=== PATIENT | male | born 1945 | race Caucasian/White ===

== ENCOUNTER 2022-02-23 14:49 | Emergency (ER) | payer MEDICARE, OTHER, SELFPAY ==
[2022-02-23] VITALS (23 sets, daily range): BP systolic 109–150; BP diastolic 62–98; PULSE 74–113; RESP 12–22; TEMP 36.5–37.2; O2SAT 95–98
--- NOTE | ~2022-02-23 | CT_ITS ---
EXAMINATION: CT brain wo con DATE: 02/23/2022 17:18 INDICATION: Altered mental state. Fatigue. Covid-positive. TECHNIQUE: Computed tomography (CT) of the head was performed without intravenous contrast. The mA wa s adjusted according to patient size. Iterative reconstruction technique was employed. Exam dose: 60 5.33 mGy-cm total exam DLP. COMPARISON: None FINDINGS: No intracranial mass lesion or hemorrhage or cerebrovascular accident is detected. Bilateral carotid siphon internal carotid artery calcifications. Bilateral basal ganglia calcifications. There is nonspecific diminished attenuation of the cerebral white matter, likely due to chronic nonsp ecific small vessel ischemic disease. There is moderate central and cortical cerebral atrophy. No subdural or epidural hematoma. No skull fracture or bone destruction of the cranial vault. Included paranasal sinuses and mastoid air cells are normally developed and aerated. IMPRESSION: Cerebral atherosclerosis and chronic small vessel ischemic changes No acute intracranial finding Reviewed, dictated and finalized at [facility]. Reviewed, dictated and finalized at [facility].
--- NOTE | ~2022-02-23 | XR_ITS ---
EXAMINATION: XR chest 1V INDICATION: Shortness of breath and cough TECHNIQUE: PA view of the chest is obtained. COMPARISON: None available FINDINGS: There are mild diffuse interstitial and airspace opacities. No pleural effusion or pneumoth orax. The cardiomediastinal silhouette is normal. A calcified nodule of the right lung base is consis tent with old granulomatous disease. IMPRESSION: 1. Mild diffuse interstitial pattern which could reflect pneumonia and/or pulmonary edema. Reviewed, dictated and finalized at [facility]. IMPRESSION: 1. Mild diffuse interstitial pattern which could reflect pneumonia and/or pulmo nary edema.
--- NOTE | 2022-02-23 16:37 | ED.URI ---
HPI - URI/Sore Throat General Chief Complaint: Upper Respiratory Infection Stated Complaint: covid +, came from urgent care Time Seen by Provider: 02/23/22 16:37 History of Present Illness HPI Narrative: The patient is a 76-year-old male with a history of atrial fibrillation on anticoagulation presenting to the emergency department for evaluation of cough in the setting of COVID diagnosis. Patient reports he has had dry cough for the past 48 hours as well as his . He presented to a local urgent care today in order to be evaluated and was found to be positive for COVID. Unfortunately, we do not share electronic medical records the facility that he initially presented to. The patient was noted to have an episode of lightheadedness and dizziness and this was sent here for evaluation. Patient has no confusion at the time of assessment. He denies headache, chest pain, shortness of breath. He reports dry cough over the past 48 hours. He reports low-grade fever this morning of 100 Fahrenheit. He denies vision changes, focal weakness or numbness. He has been ambulatory. Per the urgent care report, patient had oxygen saturation of 92%. Patient has been vaccinated x2 with 2 boosters for COVID with last booster 2 weeks previously. Patient without dysuria, hematuria. The patient has been compliant with his anticoagulation. Related Data Allergies Allergy/AdvReac Type Severity Reaction Status Date / Time No Known Allergies Allergy Verified 02/23/22 17:29 Review of Systems Review of Systems: CONSTITUTIONAL: Reports fever without chills EYES: Denies visual changes, redness, or discharge. ENT: Reports rhinorrhea, congestion, denies sore throat CARDIOVASCULAR: Denies chest pain, palpitations, or edema. RESPIRATORY: Reports cough without shortness of breath GASTROINTESTINAL: Denies abdominal pain, nausea, vomiting, or diarrhea. GENITOURINARY: Denies dysuria or hematuria. SKIN: Denies rash or itching. MUSCULOSKELETAL: Denies back pain, joint pain, or myalgia. NEUROLOGIC: Denies headache, numbness, or weakness. Exam Narrative: GENERAL: Awake, alert, conversant HEAD: Normocephalic, atraumatic. EYES: PERRLA and EOMI. ENT: Nares clear, no rhinorrhea or epistaxis. Mucous membranes moist. NECK: Supple. CHEST: No respiratory distress, breathing even and non labored HEART: Tachycardic rate, irregular rhythm ABDOMEN:Non distended, non tender EXTREMITIES: Normal range of motion. No edema. SKIN: Warm, dry, no rash. NEURO:No focal deficits. Alert and oriented x3 Course Vital Signs Vital signs: Vital Signs Temperature 36.5 C 02/23/22 15:22 Pulse Rate 113 H 02/23/22 15:22 Respiratory Rate 18 02/23/22 15:22 Blood Pressure 109/62 02/23/22 15:22 Pulse Oximetry 95 02/23/22 15:22 Oxygen Delivery Room Air 02/23/22 15:22 Temperature 36.5 C 02/23/22 17:26 Pulse Rate 78 02/23/22 18:19 Respiratory Rate 17 02/23/22 18:19 Blood Pressure 140/90 02/23/22 18:19 Pulse Oximetry 98 02/23/22 18:19 Oxygen Delivery Room Air 02/23/22 17:29 MDM - URI/Sore Throat MDM Narrative Medical decision making narrative: Patient presented here from urgent care for evaluation of COVID type symptoms. There was a question of that the patient had altered mental status at the urgent care the patient is alert and oriented to person, place, to time, states that he felt slightly lightheaded at the urgent care but denied any true altered mentation. Patient has a normal neurological exam and is ambulatory with a narrow base, steady gait, no ataxia. Initially the patient was mildly tachycardic but this down trended and became normal. Patient without leukocytosis, anemia, electrolyte derangement, acute kidney injury. Chest x-ray with evidence of potential interstitial pneumonia versus edema but patient does not have findings consistent with fluid overloaded state or significant pulmonary edema. No crackles on exam. No chest pain, no low
--- NOTE | 2022-02-23 17:00 | ECG_ITS ---
Measurements Intervals [place] Rate: 82 P: NM: 0 QRS: 39 QRSD: 88 T: 124 QT: 374 QTc: 437 Interpretive Statements ATRIAL FIBRILLATION NONSPECIFIC T-WAVE ABNORMALITY ABNORMAL ECG NO PREVIOUS ECG AVAILABLE FOR COMPARISON Electronically Signed On 02-24-2022 16:37:43 CDT by Elliott Jacob M.D.
[2022-02-23] MEDS: ACETAMINOPHEN 500 MG TABLET 1000 MG PO (17:39)
[2022-02-23] MEDS: SODIUM CHLORIDE 0.9% IV 1,000 ML 999 ML IV CONT (17:39)
[2022-02-23 17:45] LABS: Basophils Percent Auto 0.2 % (0.2-1.2); Eosinophils Percent Auto 0.1 % (0-4.4); Hematocrit 50.4 % (42.0-52.0); Hemoglobin 16.8 g/dL (14.0-18.0); Immature Granulocyte Absolute 0.02 K/mm3 (0.00-0.031); Immature Granulocyte Percent A 0.2 % (0-0.5); Lymphocytes Absolute Auto 0.71 K/mm3 (0.9-3.2); Lymphocytes Percent Auto 8.2 % (18.3-44.2); Mean Corpuscular HGB Conc 33.3 g/dl (32-36); Mean Corpuscular Hemoglobin 30.3 pg (26-34); Mean Corpuscular Volume 90.8 fl (80-100); Mean Platelet Volume 10.7 fl (7.4-10.4); Monocytes Absolute Auto 0.7 K/mm3 (0.1-0.6); Monocytes Percent Auto 7.7 % (2.6-8.5); Neutrophils Absolute Auto 7.2 K/mm3 (1.3-6.7); Neutrophils Percent Auto 83.6 % (45.5-73.1); Platelet Count Result 151 k/mm3 (150-375); Red Blood Count 5.55 M/mm3 (4.6-6.20); Red Cell Distribution Width 13.2 % (11.5-14.5); White Blood Count 8.6 K/mm3 (4.5-10.0)
[2022-02-23 17:57] LABS: Alanine Aminotransferase 30 U/L (6-50); Albumin Level 4.6 g/dL (3.5-5.1); Alkaline Phosphatase 60 U/L (38-126); Anion Gap 9 mmol/L (8-16); Aspartate Amino Transferase 27 U/L (17-59); Bilirubin,Total 1.1 mg/dL (0.2-1.3); Blood Urea Nitrogen 17 mg/dL (9-20); Calcium 9.1 mg/dL (8.4-10.2); Carbon Dioxide 25 mmol/L (22-30); Chloride 105 mmol/L (98-107); Estimated CRCL calculation 51 ml/min; Estimated Glomerular Filt Rate 59; Glucose 168 mg/dL (65-110); Potassium 4.1 mmol/L (3.4-5.0); Sodium 139 mmol/L (137-145)
[2022-02-23 18:17] LABS: Troponin I < 0.012 ng/mL (0.000-0.034)
--- NOTE | 2022-02-23 18:21 | PC.NURSE ---
Completed walking SpO2 testing. Completed one full lap around the unit, maintained SpO2 96-97%. MD aware. Pt denies shortness of breath, states he felt his gait was better .
[2022-02-23 18:59] LABS: SARS-CoV-2 RNA PCR Positive
== END 2022-02-23 19:07 | disposition home or self-care (01) ==
PROVIDERS: Emergency Provider Emergency Medicine
DX: U07.1 COVID-19 (principal); I48.91 Unspecified atrial fibrillation; Z79.01 Long term (current) use of anticoagulants; I67.2 Cerebral atherosclerosis
CPT/HCPCS: 36415; 70450; 71045; 80053; 84484; 85025; 93005; 96360; 99284; A9270; C9803; J7030; U0003; U0005

== ENCOUNTER 2024-06-18 11:07 | Outpatient (CLI) | payer MEDICARE, SELFPAY ==
--- NOTE | ~2024-06-18 | US_ITS ---
Renal-Bladder ultrasound Clinical History: Chronic kidney disease Technique: Real-time sonographic imaging of the kidneys and urinary bladder was performed. Findings: The right kidney measures 11.1 cm in length and the left kidney measures 11.7 cm. There is no hydronephrosis or renal calculus identified. Renal cortical echogenicity is within normal limits. No renal mass lesion is identified. The urinary bladder is moderately distended at the time of this exam. No intraluminal echoes are iden tified. No abnormal wall thickening is seen. Impression: Unremarkable ultrasound of the kidneys and urinary bladder. Reviewed, dictated and finalized at [facility]. Impression: Unremarkable ultrasound of the kidneys and urinary bladder.
== END 2024-06-18 11:08 | disposition home or self-care (01) ==
LOC: MICIMG 11:09
PROVIDERS: PCP Family Medicine; Visit Provider Family Medicine
DX: N18.30 Chronic kidney disease, stage 3 unspecified (principal)
CPT/HCPCS: 76775